=== PATIENT | female | born 1935 | race Caucasian/White ===

== ENCOUNTER 2017-05-17 08:55 | Day surgery (SDC) | payer OTHER ==
[~2017-05-17] VITALS: Ht 157.5 cm; Wt 61.7 kg
[~2017-05-17 08:55] MED LIST: ACET325 PO; AMLO10 PO; ASPI325; ASPI325EC PO; Antacid-Simeth360 ML PO; BISA10S PR; Bisac-Evac10 MG PR; CHOL10002; CLARITIN10 MG PO; CLOB.05TO TP; CLOP75; CLOP75 PO; CODACE30; DOCU100 PO; GABA100; GLUCHON PO; GLUCOSAMINE-CH1 EA22 PO; LAVAP17G; LOPE2C PO; LORA10 PO; METF500C PO; MIRALAX119 GM PO; Milk Of Ma400 MG/5 M PO; OXYB5ER PO; PANT40 PO; PRAV20; PRAV20 PO; PROP30DR BOTHEYES; Pravachol80 MG PO; RAMI2.5; RAMI5 PO; RANI150 PO; Ramipril10 MG PO; Secura Protecti50 GM; Systane 0.3-0.415 ML OP; TRIA80TC TOP; Toviaz4 MG PO; VITAMIN D33000 UNIT PO
== END 2017-05-17 11:30 | disposition home or self-care (01) ==
LOC: ORSCSDS 08:55
PROVIDERS: Internal Medicine Gastroenterology
PROC: 0DJ08ZZ Inspection of Upper Intestinal Tract, Via Natural or Artificial Opening Endoscopic (ICD-10-PCS; principal; 2017-05-17 10:30)
PROC: 0D758ZZ Dilation of Esophagus, Via Natural or Artificial Opening Endoscopic (ICD-10-PCS; principal; 2017-05-17 10:30)
DX: R13.14 Dysphagia, pharyngoesophageal phase (principal); K22.2 Esophageal obstruction; K44.9 Diaphragmatic hernia without obstruction or gangrene; Z87.891 Personal history of nicotine dependence; E78.2 Mixed hyperlipidemia; E11.9 Type 2 diabetes mellitus without complications; E78.5 Hyperlipidemia, unspecified; I10 Essential (primary) hypertension; Z79.01 Long term (current) use of anticoagulants; Z79.82 Long term (current) use of aspirin; Z79.84 Long term (current) use of oral hypoglycemic drugs; Z79.899 Other long term (current) drug therapy
CPT/HCPCS: 82947; J2250; J7120

== ENCOUNTER → 2018-03-15 | Outpatient (CLI) | payer OTHER ==
[~2018-03-15] MED LIST changes: +Acetaminophen-1 EAC1 PO; +NYSTRITC TOP; +Systane 0.3-0.415 ML BOTHEYES
[2018-03-15 17:13] LABS: Bilirubin, Urine Neg (Neg); Blood, Urine 2+ (Neg); Glucose Qualitative, Urine Neg (Neg); Ketones, Urine Neg (Neg); Leukocyte Esterase, Urine 2+ (Neg); Nitrite, Urine Neg (Neg); Protein, Urine Neg (Neg); Urobilinogen, Urine NORM (Normal); pH, Urine 6.5 (5.0-8.0)
[2018-03-15 17:33] LABS: Appearance, Urine Clear (Clear); Color, Urine Yellow (P-Yellow)
[2018-03-15 17:35] LABS: Bacteria Few /hpf; Red Blood Cells, Urine 0-2 /hpf (0-2); Squamous Epithelial Cells Few /hpf (Few); Transitional Epithelial Cells Few /hpf (0-Rare)
== END | disposition home or self-care (01) ==
LOC: LAB SHORT 15:45 → LAB 15:45
DX: N39.0 Urinary tract infection, site not specified (principal)
CPT/HCPCS: 81001; 87086

== ENCOUNTER 2018-06-29 09:53 | Day surgery (SDC) | payer OTHER ==
[~2018-06-29] VITALS: Ht 157.5 cm; Wt 140.0 kg
[~2018-06-29 09:53] MED LIST changes: +ALUM PO; +Biscolax10 MG; +Cosamin Ds Tab1 EACH PO; +MAG PO; +Milk Of Ma400 MG/5 M; +NYSTRIT TOP; +Polyethylene G500 G4; +SIMETH PO; +TYLECOD3 PO
== END 2018-06-29 13:03 | disposition home or self-care (01) ==
LOC: ORSCSDS 09:53
PROVIDERS: Surgery
PROC: 0JB60ZX Excision of Chest Subcutaneous Tissue and Fascia, Open Approach, Diagnostic (ICD-10-PCS; principal; 2018-06-29 11:15)
DX: L72.0 Epidermal cyst (principal); I10 Essential (primary) hypertension; I69.351 Hemiplegia and hemiparesis following cerebral infarction affecting right dominant side; Z79.899 Other long term (current) drug therapy; Z79.82 Long term (current) use of aspirin
CPT/HCPCS: 82947; 88304; J0690; J2001; J2704; J7120

== ENCOUNTER 2018-09-10 06:28 | Emergency (ER) | payer OTHER ==
[~2018-09-10] VITALS: Ht 157.5 cm; Wt 68.0 kg
[2018-09-10] MEDS ORDERED: Toviaz4 MG PO (06:43)
[2018-09-10] MEDS ORDERED: CHOL10002 PO (06:44)
[2018-09-10] MEDS ORDERED: LORA1SY PO (06:45)
[2018-09-10] MEDS ORDERED: Acetaminophen325 M1 PO (06:45)
[2018-09-10] MEDS ORDERED: Ducodyl5 MG PR (06:47)
[2018-09-10] MEDS ORDERED: MUCUS ER600 M1 PO (06:48)
[2018-09-10] MEDS ORDERED: ONDA4ODT MM (06:49)
== END 2018-09-10 08:31 | disposition home or self-care (01) ==
LOC: ER 06:28
DX: S92.511A Displaced fracture of proximal phalanx of right lesser toe(s), initial encounter for closed fracture (principal); W18.30XA Fall on same level, unspecified, initial encounter; Z79.899 Other long term (current) drug therapy; Z79.84 Long term (current) use of oral hypoglycemic drugs; Z79.82 Long term (current) use of aspirin; Z86.73 Personal history of transient ischemic attack (TIA), and cerebral infarction without residual deficits; E78.5 Hyperlipidemia, unspecified; E11.9 Type 2 diabetes mellitus without complications; I10 Essential (primary) hypertension; Z87.891 Personal history of nicotine dependence
CPT/HCPCS: 73630; 99283-25

== ENCOUNTER → 2018-10-10 | Outpatient (CLI) | payer OTHER ==
[~2018-10-10] MED LIST changes: +Acetaminophen325 M1 PO; +CHOL10002 PO; +Ducodyl5 MG PR; +LORA1SY PO; +MUCUS ER600 M1 PO; +ONDA4ODT MM
[2018-10-10 13:51] LABS: Bilirubin, Urine Neg (Neg); Blood, Urine 2+ (Neg); Glucose Qualitative, Urine 1+ (Neg); Ketones, Urine Neg (Neg); Leukocyte Esterase, Urine 3+ (Neg); Nitrite, Urine Neg (Neg); Protein, Urine 1+ (Neg); Specific Gravity, Urine 1.015 (1.003-1.022); Urobilinogen, Urine NORM (Normal)
[2018-10-10 14:24] LABS: Appearance, Urine Hazy (Clear); Color, Urine Yellow (P-Yellow)
[2018-10-10 14:26] LABS: White Blood Cells, Urine 50-100 /hpf (0-5)
[2018-10-10 14:27] LABS: Bacteria Many /hpf; Squamous Epithelial Cells Few /hpf (Few)
== END | disposition home or self-care (01) ==
LOC: LAB 13:34 → LAB SHORT 13:34
DX: N39.0 Urinary tract infection, site not specified (principal)
CPT/HCPCS: 81001; 87077; 87086; 87186

== ENCOUNTER → 2019-06-07 | Outpatient (CLI) | payer OTHER ==
[2019-06-07 18:47] LABS: Bilirubin, Urine Neg (Neg); Blood, Urine Neg (Neg); Glucose Qualitative, Urine Neg (Neg); Ketones, Urine Neg (Neg); Leukocyte Esterase, Urine 2+ (Neg); Nitrite, Urine Pos (Neg); Protein, Urine Neg (Neg); Urobilinogen, Urine NORM (Normal)
[2019-06-07 18:56] LABS: Appearance, Urine Clear (Clear); Color, Urine Yellow (P-Yellow)
[2019-06-07 18:58] LABS: Bacteria Many /hpf; Red Blood Cells, Urine 0-2 /hpf (0-2); Squamous Epithelial Cells Few /hpf (Few)
== END | disposition home or self-care (01) ==
LOC: LAB 18:41 → LAB SHORT 18:41
DX: N39.0 Urinary tract infection, site not specified (principal)
CPT/HCPCS: 81001; 87077; 87086; 87186

== ENCOUNTER → 2019-11-15 | Outpatient (CLI) | payer OTHER ==
[~2019-11-15] MED LIST changes: +ARTIFICIAL TEAR15 M2 BOTHEYES; +ASCO500 PO; -CHOL10002 PO; +CODACE30 PO; +FERSU300 PO; +GLUCOSAMINE CH PO; +MIRALAX17 GM PO; -Polyethylene G500 G4; +Pravastatin Sod80 MG PO; +VITAMIN D31000 UNI1 PO
[2019-11-15 19:49] LABS: Appearance, Urine Clear (Clear); Bilirubin, Urine Neg (Neg); Blood, Urine Neg (Neg); Color, Urine Yellow (P-Yellow); Glucose Qualitative, Urine Neg (Neg); Ketones, Urine Neg (Neg); Leukocyte Esterase, Urine 1+ (Neg); Nitrite, Urine Pos (Neg); Protein, Urine Neg (Neg); Urobilinogen, Urine NORM (Normal); pH, Urine 6.5 (5.0-8.0)
[2019-11-15 20:03] LABS: Red Blood Cells, Urine 0-2 /hpf (0-2); White Blood Cells, Urine 0-2 /hpf (0-5)
[2019-11-15 20:04] LABS: Bacteria Few /hpf; Squamous Epithelial Cells Rare /hpf (Few)
== END | disposition home or self-care (01) ==
LOC: LAB 18:03 → LAB SHORT 18:03
PROVIDERS: Internal Medicine Nephrology
DX: N39.0 Urinary tract infection, site not specified (principal)
CPT/HCPCS: 81001

== ENCOUNTER 2019-12-03 00:26 | Day surgery (SDC) | payer OTHER ==
[~2019-12-03 00:26] MED LIST changes: -ARTIFICIAL TEAR15 M2 BOTHEYES; -ASCO500 PO; -CODACE30 PO; -FERSU300 PO; -GLUCOSAMINE CH PO
--- NOTE | 2019-12-03 11:44 | NUR ---
LAB DRAW: ANGELINE RECIEVED ORDER FOR A 2 UNIT TRANSFUSION BUT PT WA NOT TYPED AND SCREENED. PT CAME INTO UNIT WITH DAUGHTER JIM VIA W/C. THIS RN STARTED IV, MIKE LABS AND PT TO COME BACK IN UNIT AT 13:30 FOR A 2 UNIT BLOOD TRANSFUSION. WHILE DOING IV, PT HAS STRONG ODOR OF URINE, SMELL IS SUSPICIOUS, POSSIBLE UTI, PTS DAUGHTER STATES THAT SHE LIVES AT [facility] BUT "JUST NOT HERSELF TODAY" PT SHAKES HEAD WHEN ASKED IF SHE KNOWS WHY SHE IS AT [facility]. A FULL ADMIT WILL BE DONE WHEN SHE RETURNS AT 13:30 FOR BLOOD. DAUGHTER GOING TO TAKE HER TO [place] [facility] WHILE THEY WAIT FOR BLOOD TO BE TYPED AND SCREENED.
[2019-12-03] MEDS ORDERED: FERSU300 PO (15:36)
[2019-12-03] MEDS ORDERED: ASCO500 PO (15:37)
[2019-12-03] MEDS ORDERED: ARTIFICIAL TEAR15 M2 BOTHEYES (15:38)
[2019-12-03] MEDS ORDERED: ACET325 PO (15:39)
[2019-12-03] MEDS ORDERED: CODACE30 PO (15:39)
[2019-12-03] MEDS ORDERED: GLUCOSAMINE CH PO (17:14)
[2019-12-03] MEDS ORDERED: Toviaz4 MG PO (17:15)
== END 2019-12-03 10:08 | disposition home or self-care (01) ==
LOC: ATC 00:26
PROC: 30233N1 Transfusion of Nonautologous Red Blood Cells into Peripheral Vein, Percutaneous Approach (ICD-10-PCS; principal; 2019-12-03)
DX: D64.9 Anemia, unspecified (principal); I10 Essential (primary) hypertension; E11.9 Type 2 diabetes mellitus without complications; I69.921 Dysphasia following unspecified cerebrovascular disease; G64 Other disorders of peripheral nervous system; M19.90 Unspecified osteoarthritis, unspecified site; E78.5 Hyperlipidemia, unspecified; G89.29 Other chronic pain; R51.9 Headache, unspecified; N39.3 Stress incontinence (female) (male); K57.90 Diverticulosis of intestine, part unspecified, without perforation or abscess without bleeding; E78.00 Pure hypercholesterolemia, unspecified; Z79.02 Long term (current) use of antithrombotics/antiplatelets; Z79.84 Long term (current) use of oral hypoglycemic drugs; Z79.82 Long term (current) use of aspirin; Z79.1 Long term (current) use of non-steroidal anti-inflammatories (NSAID); Z79.899 Other long term (current) drug therapy; Z87.891 Personal history of nicotine dependence; Z66 Do not resuscitate
CPT/HCPCS: 36415; 86850; 86900; 86901; 86923

== ENCOUNTER 2019-12-03 11:44 | Observation (INO) | payer OTHER ==
[~2019-12-03] VITALS: Ht 154.9 cm; Wt 57.3 kg
[2019-12-03 12:56] LABS: BASOPHILS PERCENT AUTO 1 % (0-2); EOSINOPHILS ABSOLUTE AUTO 0.08 K/mm3 (0.00-0.68); EOSINOPHILS PERCENT AUTO 1 % (0-6); Hematocrit 23.2 % (33.0-51.0); Hemoglobin 6.5 g/dL (11.5-16.0); IMMATURE GRAN ABSOLUTE AUTO 0.05 K/mm3 (0.00-0.10); IMMATURE GRAN PERCENT AUTO 1 % (0-1); LYMPHOCYTES ABSOLUTE AUTO 0.98 K/mm3 (0.84-5.20); LYMPHOCYTES PERCENT AUTO 9 % (21-46); MONOCYTES ABSOLUTE AUTO 0.58 K/mm3 (0.16-1.47); MONOCYTES PERCENT AUTO 5 % (4-13); Mean Corpuscular HGB 19.4 pg (26.0-34.0); Mean Corpuscular Volume 69 fL (80-100); Mean Platelet Volume 9.6 fL (9.1-12.4); NEUTROPHILS ABSOLUTE AUTO 8.99 K/mm3 (1.96-9.15); NEUTROPHILS PERCENT AUTO 83 % (41-73); Platelet Count 451 K/mm3 (150-400); RDW Coefficient Variation 18.3 % (11.7-14.2); RDW Standard Deviation 40.6 fL (35.1-46.3); Red Blood Cell Count 3.35 M/mm3 (3.80-5.20); White Blood Cell Count 10.78 K/mm3 (4.00-11.30)
[2019-12-03 13:15] LABS: Alanine Aminotransfer (ALT/SGP 13 U/L (12-78); Albumin, Blood 3.4 g/dL (3.4-5.0); Albumin/Globulin Ratio 0.9 (0.8-1.8); Alk Phos 56 U/L (50-136); Anion Gap 10 mmol/L (6-16); Aspartate Aminotrans (AST/SGOT 14 U/L (12-37); Bilirubin, Total 0.2 mg/dL (0.1-1.0); Blood Urea Nitrogen 11 mg/dL (8-24); Bun/Creatinine Ratio 13.1 (12.0-20.0); CO2, Blood 22 mmol/L (21-32); Calcium, Blood 8.7 mg/dL (8.5-10.1); Chloride, Blood 103 mmol/L (98-108); Creatinine, Blood 0.84 mg/dL (0.40-1.00); Globulin, Blood 3.8 g/dL (2.2-4.0); Glomerular Filtration Rate >60 (60-); Glucose, Blood 160 mg/dL (70-99); Potassium, Blood 3.8 mmol/L (3.5-5.5); Sodium, Blood 135 mmol/L (136-145); Total Protein, Blood 7.2 g/dL (6.4-8.2); Troponin I 0.025 ng/mL (0.000-0.040)
--- NOTE | 2019-12-03 13:26 | NUR ---
After responding to a rapid response, I connect with patient's daughter, Vidya. I escort Vidya to the ER and provide a distraction and emotional support to Vidya while ER staff provide medical assistance to patient. I conduct a life review of patient and Vidya as well as learn their congregation preference ([employer]). I reinforce helpful attitudes and practices and provide prayer. I will continue to remain available to patient and family.
[2019-12-03] MEDS ORDERED: FERSU300 PO (15:36)
[2019-12-03] MEDS ORDERED: ASCO500 PO (15:37)
[2019-12-03] MEDS ORDERED: ARTIFICIAL TEAR15 M2 BOTHEYES (15:38)
[2019-12-03] MEDS ORDERED: ACET325 PO (15:39)
[2019-12-03] MEDS ORDERED: CODACE30 PO (15:39)
[2019-12-03] MEDS ORDERED: GLUCOSAMINE CH PO (17:14)
[2019-12-03] MEDS ORDERED: Toviaz4 MG PO (17:15)
[2019-12-03 19:01] LABS: Source, Urine Catheter
--- NOTE | 2019-12-03 19:10 | NUR ---
SHIFT SUMMARY PT ADMITTED AFTER RTT WHEN WAITING TO RECIEVE BLOOD IN [place]. PT IS AO, BUT EXHIBITS CONFUSION. 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 PT'S DAUGHTER IN ROOM THROUGHOUT SHIFT SINCE ADMIT AT 1600. URINE SAMPLE COLLECTED BY STRAIGHT CATH AND SENT TO LAB. PT IS INCONTINENT OF URINE. PT DENIES PAIN, N/V, SOB. PT IS ON BEDREST WITH BATHROOM PRIVILEDGES. PLAN IS TO INFUSE LAST UNIT OF PRBC ON UNIT AND EVALUATE URINE CULTURE RESULTS. PT IS IN BED, LOW POSITION, ALARM ON, WITH CALL LIGHT IN REACH.
[2019-12-03 19:15] LABS: Bilirubin, Urine Neg (Neg); Blood, Urine 1+ (Neg); Glucose Qualitative, Urine Neg (Neg); Ketones, Urine Neg (Neg); Leukocyte Esterase, Urine 1+ (Neg); Nitrite, Urine Pos (Neg); Protein, Urine 1+ (Neg); Urobilinogen, Urine NORM (Normal)
[2019-12-03 19:29] LABS: Appearance, Urine Cloudy (Clear); Color, Urine Yellow (P-Yellow)
[2019-12-03 19:30] LABS: Bacteria Many /hpf; Red Blood Cells, Urine 0-2 /hpf (0-2); Squamous Epithelial Cells Few /hpf (Few)
--- NOTE | 2019-12-03 22:52 | NUR ---
infused one unit PRBS per MD orders. No noted adverse affects. Smiling. Daughter at bedside. call light in reach.
[2019-12-04 04:54] LABS: BASOPHILS ABSOLUTE AUTO 0.06 K/mm3 (0.00-0.23); BASOPHILS PERCENT AUTO 1 % (0-2); EOSINOPHILS ABSOLUTE AUTO 0.26 K/mm3 (0.00-0.68); EOSINOPHILS PERCENT AUTO 3 % (0-6); Hematocrit 29.9 % (33.0-51.0); Hemoglobin 9.1 g/dL (11.5-16.0); IMMATURE GRAN ABSOLUTE AUTO 0.03 K/mm3 (0.00-0.10); IMMATURE GRAN PERCENT AUTO 0 % (0-1); LYMPHOCYTES ABSOLUTE AUTO 1.73 K/mm3 (0.84-5.20); LYMPHOCYTES PERCENT AUTO 19 % (21-46); MONOCYTES ABSOLUTE AUTO 0.73 K/mm3 (0.16-1.47); MONOCYTES PERCENT AUTO 8 % (4-13); Mean Corpuscular HGB Conc 30.4 g/dL (31.5-36.5); Mean Platelet Volume 9.1 fL (9.1-12.4); NEUTROPHILS ABSOLUTE AUTO 6.21 K/mm3 (1.96-9.15); NEUTROPHILS PERCENT AUTO 69 % (41-73); Platelet Count 356 K/mm3 (150-400); RDW Coefficient Variation 23.4 % (11.7-14.2); RDW Standard Deviation 59.4 fL (35.1-46.3); Red Blood Cell Count 3.96 M/mm3 (3.80-5.20); White Blood Cell Count 9.02 K/mm3 (4.00-11.30)
[2019-12-04 04:55] LABS: Mean Corpuscular Volume 76 fL (80-100)
[2019-12-04 05:14] LABS: Alanine Aminotransfer (ALT/SGP 11 U/L (12-78); Albumin, Blood 2.9 g/dL (3.4-5.0); Albumin/Globulin Ratio 0.9 (0.8-1.8); Alk Phos 55 U/L (50-136); Anion Gap 7 mmol/L (6-16); Aspartate Aminotrans (AST/SGOT 10 U/L (12-37); Blood Urea Nitrogen 9 mg/dL (8-24); Bun/Creatinine Ratio 15.1 (12.0-20.0); CO2, Blood 24 mmol/L (21-32); Calcium, Blood 8.1 mg/dL (8.5-10.1); Chloride, Blood 107 mmol/L (98-108); Globulin, Blood 3.3 g/dL (2.2-4.0); Glomerular Filtration Rate >60 (60-); Glucose, Blood 100 mg/dL (70-99); Phosphorus, Blood 3.4 mg/dL (2.5-4.9); Potassium, Blood 3.5 mmol/L (3.5-5.5); Sodium, Blood 138 mmol/L (136-145); Total Protein, Blood 6.2 g/dL (6.4-8.2)
--- NOTE | 2019-12-04 10:56 | NUR ---
PHYSICIAN NOTIFIED/PT EVAL THIS RN SPOKE TO DR. WORKMAN AT 1054 ABOUT PT EVALUATION FOR PT TO BE DC'D TO SNF. THIS RN RECEIVED ORDERS TO DC PREVIOUS DC ORDERS GIVEN THIS AM.
--- NOTE | 2019-12-04 12:16 | NUR ---
I meet with patient's daughter, Vidya, outside the patient's rm. Vidya tells me about what is happening medically with patient and the plan moving forward. Although Viday understands the purpose of patient going to a rehab. facility she voices her concerns about patient declining from lack of consistancey and connection with her family. I provide therapeutic listening and normalize her concerns. Vidya states that the conversation is helpful. I will continue to remain available to patient and family.
--- NOTE | 2019-12-04 18:04 | NUR ---
SHIFT SUMMARY PT IS AO, BUT EXHIBITS CONFUSION. PT TRIED TO EXIT BED MULTIPLE TIMES THIS SHIFT AND BED ALARM IS IN PLACE. PT DENIES PAIN, N/V, SOB. PT'S DAUGHTER IN ROOM THROUGHOUT DAY. PT EVALUATED BY PT AND DETERMINED SNF MAY BE NEEDED UPON DC FOR STRENGTHENING. PT IS ON BEDREST AND UP TO COMMODE WITH LIFT FOR BM'S. PLAN IS TO POTENTIALLY DC TOMORROW. PT IS IN BED, CALL LIGHT IN REACH, ALARM IN PLACE. DAUGHTER IS CURRENTLY AT BEDSIDE.
--- NOTE | 2019-12-05 11:51 | NUR ---
Patient is sleeping and her daughter, Vidya is bedside. Vidya tells me about the goal she has to have patient stay one more night and instead of going to a rehab. facility go directly to [facility]. Vidya is concerned that the constant shifting of facilities and people would cause her mother undue confusion and fear. As patient awakens, she appears to be much more aware. Vidya tells me about the struggle many of the events in her life are. I provide therapeutic listening and prayer. Vidya responds well and shows signs of reduced stress. I will continue to remain available to patient and family.
--- NOTE | 2019-12-05 19:05 | NUR ---
ASSUMED CARE RECEIVED REPORT FROM ROSALINO HERNÁNDEZ. ASSUMED CARE OF PT. PT USING BSC AT THIS TIME, FOOD SERVICE STEWARD ASSISTING PT BACK TO BED. NO S/S ACUTE DISTRESS NOTED. DENIES NEEDS AT THIS TIME. CALL LIGHT AND POSSESSIONS IN REACH, BED IN LOW POSITION WITH ALARM ON. WILL CONTINUE TO MONITOR.
--- NOTE | 2019-12-05 19:14 | NUR ---
SHIFT SUMMARY PT IS AO AND MORE AWAKE THIS ABBE. PT SLEPT THROUGHOUT DAY. PT DENIES PAIN, N/V, SOB. PT TURNED Q2H. PT ABLE TO AMBULATE TO COMMODE WITH 2 PERSON ASSIST AND FWW THIS ABBE. NO ACUTE CHANGES THIS SHIFT. PT IN BED, CALL LIGHT IN REACH, ALARMS ON. DAUGHTER PRESENT IN THE ROOM.
--- NOTE | 2019-12-06 06:07 | NUR ---
SHIFT SUMMARY PT HAS HAD NO ACUTE CHANGES IN CONDITION T/O NIGHT, SLEPT T/O. WAS MONITORED EVERY 1-2 HOURS WITH NEEDS MET. REPOSITIONED TOLERATED. VS REVIEWED, STABLE. DAUGHTER HAS REMAINED AT BEDSIDE. HOPEFUL FOR PT TO D/C HOME TODAY. DENY NEEDS AT THIS TIME. CALL LIGHT, POSSESSIONS IN REACH, BED IN LOWEST POSITION WITH ALARMS ON. WILL CONTINUE TO MONITOR AND PROVIDE CARE NEEDED UNTIL DAY RN ASSUMES CARE.
--- NOTE | 2019-12-06 17:41 | NUR ---
SHIFT SUMMARY PATIENT ALERT AND ORIENTED TO SELF AND FAMILY THIS SHIFT. PATIENT MOSTLY NON-VERBAL FROM CVA 17 YEARS AGO. PATIENT 2 PERSON ASSIST TO THE BEDSIDE COMODE THIS SHIFT. PATIENT SITTING UP IN BED THIS SHIFT. PT STATES THAT PATIENT IS MUCH MORE ALERT THAN PREVIOUS ATTEMPTS OF WORKING WITH HER. PATIENT'S DAUGHTER IN THE ROOM FOR MOST OF THIS SHIFT. PATIENT CURRENTLY SITTING UP IN BED WATCHING TELEVISION.
--- NOTE | 2019-12-07 05:43 | NUR ---
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 DTR Vidya at bedside supportive involved in cares. Extensive assist with transfers toileting. Voids on BSC & incontinent of urine. Planning to dc back to [facility] today? UTI tx with IV antibiotics & PT recieved transfusion of 2 units of PRBC for anemia. Pain well controlled on current RX.
[2019-12-07] MEDS ORDERED: AMLO10 (10:10)
--- NOTE | 2019-12-07 11:02 | NUR ---
PATIENT D/C'D TO [facility] VIA [facility] [facility]SP[facility]. DC ISNTRUCTION AND MED LIST DISCUSSED WITH DAUGHTER AND COPY PROVIDED. FAXED DC INSTRUCTIONS TO [facility]. PATIENT AND DAUGHTER DENY ANY FURTHER QUESTIONS OR CONCERNS. BELONGING SENT HOME WITH DAUGHTER.
== END 2019-12-07 10:42 | disposition home or self-care (01) ==
LOC: ER 11:44 → MEDS 11:45 → ENPENDDIS 12-04 14:34 → MEDS 12-07 10:42
PROVIDERS: Emergency Medicine; ADMIT Hospitalist
PROC: 30233N1 Transfusion of Nonautologous Red Blood Cells into Peripheral Vein, Percutaneous Approach (ICD-10-PCS; principal; 2019-12-03)
DX: D64.9 Anemia, unspecified (principal); N39.0 Urinary tract infection, site not specified; B96.20 Unspecified Escherichia coli [E. coli] as the cause of diseases classified elsewhere; G92 Toxic encephalopathy; R44.1 Visual hallucinations; E78.5 Hyperlipidemia, unspecified; G89.29 Other chronic pain; R51.9 Headache, unspecified; E11.9 Type 2 diabetes mellitus without complications; I10 Essential (primary) hypertension; I69.951 Hemiplegia and hemiparesis following unspecified cerebrovascular disease affecting right dominant side; I69.920 Aphasia following unspecified cerebrovascular disease; R01.1 Cardiac murmur, unspecified; M19.90 Unspecified osteoarthritis, unspecified site; Z87.891 Personal history of nicotine dependence; Z90.710 Acquired absence of both cervix and uterus; Z90.722 Acquired absence of ovaries, bilateral; Z90.79 Acquired absence of other genital organ(s); Z99.3 Dependence on wheelchair; Z79.02 Long term (current) use of antithrombotics/antiplatelets; Z79.82 Long term (current) use of aspirin; Z79.84 Long term (current) use of oral hypoglycemic drugs; Z79.899 Other long term (current) drug therapy; Z23 Encounter for immunization
CPT/HCPCS: 36415; 36430; 71045; 80053; 81001; 82947; 83735; 84100; 84484; 85025; 86850; 86900; 86901; 86920; 86923; 87077; 87086; 87186; 93005; 93010; 97162; 97530; 99285-25; A9270-GY; J0696; J1650; J7030; P9016

== ENCOUNTER 2019-12-21 11:03 | Emergency (ER) | payer OTHER ==
[~2019-12-21] VITALS: Ht 172.7 cm; Wt 90.7 kg
[~2019-12-21 11:03] MED LIST changes: +AMLO10; +ARTIFICIAL TEAR15 M2 BOTHEYES; +ASCO500 PO; +CODACE30 PO; +FERSU300 PO; +GLUCOSAMINE CH PO
[2019-12-21] MEDS ORDERED: ACET325 PO (11:32)
[2019-12-21] MEDS ORDERED: AMLO10 PO (11:33)
[2019-12-21] MEDS ORDERED: FERSU300 PO (11:33)
[2019-12-21] MEDS ORDERED: CODACE30 PO (11:33)
[2019-12-21] MEDS ORDERED: GLUCOS PO (11:35)
[2019-12-21] MEDS ORDERED: CHON PO (11:35)
[2019-12-21] MEDS ORDERED: MSM PO (11:35)
[2019-12-21] MEDS ORDERED: PANT40 PO (11:36)
[2019-12-21] MEDS ORDERED: METF500C PO (11:36)
[2019-12-21] MEDS ORDERED: MIRALAX17 GM (11:36)
[2019-12-21] MEDS ORDERED: Pravachol40 MG PO (11:36)
[2019-12-21] MEDS ORDERED: Toviaz4 MG PO (11:37)
[2019-12-21] MEDS ORDERED: Vitamin D2000 UNIT PO (11:37)
[2019-12-21] MEDS ORDERED: ASCO500 PO (11:37)
[2019-12-21] MEDS ORDERED: RAMI5 PO (11:37)
[2019-12-21] MEDS ORDERED: EYE DROPS BOTHEYES (11:38)
[2019-12-21] MEDS ORDERED: NYSTOP15 GM TOP (11:38)
[2019-12-21 12:08] LABS: BASOPHILS ABSOLUTE AUTO 0.09 K/mm3 (0.00-0.23); BASOPHILS PERCENT AUTO 1 % (0-2); EOSINOPHILS ABSOLUTE AUTO 0.14 K/mm3 (0.00-0.68); EOSINOPHILS PERCENT AUTO 1 % (0-6); Hemoglobin 10.8 g/dL (11.5-16.0); IMMATURE GRAN ABSOLUTE AUTO 0.03 K/mm3 (0.00-0.10); IMMATURE GRAN PERCENT AUTO 0 % (0-1); LYMPHOCYTES ABSOLUTE AUTO 2.11 K/mm3 (0.84-5.20); LYMPHOCYTES PERCENT AUTO 19 % (21-46); MONOCYTES ABSOLUTE AUTO 0.84 K/mm3 (0.16-1.47); MONOCYTES PERCENT AUTO 8 % (4-13); Mean Platelet Volume 9.6 fL (9.1-12.4); NEUTROPHILS ABSOLUTE AUTO 7.65 K/mm3 (1.96-9.15); NEUTROPHILS PERCENT AUTO 71 % (41-73); Platelet Count 588 K/mm3 (150-400); White Blood Cell Count 10.86 K/mm3 (4.00-11.30)
[2019-12-21 12:12] LABS: Mean Corpuscular HGB 23.1 pg (26.0-34.0); Mean Corpuscular Volume 77 fL (80-100); Red Blood Cell Count 4.68 M/mm3 (3.80-5.20)
[2019-12-21 12:21] LABS: Alanine Aminotransfer (ALT/SGP 11 U/L (12-78); Albumin, Blood 3.3 g/dL (3.4-5.0); Albumin/Globulin Ratio 0.8 (0.8-1.8); Alk Phos 79 U/L (50-136); Anion Gap 9 mmol/L (6-16); Aspartate Aminotrans (AST/SGOT 17 U/L (12-37); Bilirubin, Total 0.2 mg/dL (0.1-1.0); Blood Urea Nitrogen 9 mg/dL (8-24); Bun/Creatinine Ratio 13.6 (12.0-20.0); CO2, Blood 25 mmol/L (21-32); Calcium, Blood 9.3 mg/dL (8.5-10.1); Chloride, Blood 95 mmol/L (98-108); Creatinine, Blood 0.66 mg/dL (0.40-1.00); Globulin, Blood 3.9 g/dL (2.2-4.0); Glomerular Filtration Rate >60 (60-); Glucose, Blood 140 mg/dL (70-99); Potassium, Blood 3.6 mmol/L (3.5-5.5); Sodium, Blood 129 mmol/L (136-145); Total Protein, Blood 7.2 g/dL (6.4-8.2)
== END 2019-12-21 14:56 | disposition home or self-care (01) ==
LOC: ER 11:03
PROVIDERS: Emergency Medicine
DX: R11.10 Vomiting, unspecified (principal); R19.5 Other fecal abnormalities; E78.5 Hyperlipidemia, unspecified; E11.9 Type 2 diabetes mellitus without complications; I10 Essential (primary) hypertension; Z79.899 Other long term (current) drug therapy; Z79.84 Long term (current) use of oral hypoglycemic drugs; Z86.73 Personal history of transient ischemic attack (TIA), and cerebral infarction without residual deficits; Z87.891 Personal history of nicotine dependence
CPT/HCPCS: 71045; 74176; 80053; 85025; 86850; 86900; 86901; 93005; 93010; 96374; 99285-25; C9113

== ENCOUNTER 2020-01-29 12:02 | Inpatient (IN) | payer OTHER ==
[~2020-01-29] VITALS: Ht 162.6 cm; Wt 54.0 kg
[~2020-01-29 12:02] MED LIST changes: +CHON PO; +EYE DROPS BOTHEYES; +GLUCOS PO; +MIRALAX17 GM; +MSM PO; +NYSTOP15 GM TOP; +Vitamin D2000 UNIT PO
[2020-01-29 13:23] LABS: BASOPHILS ABSOLUTE AUTO 0.04 K/mm3 (0.00-0.23); BASOPHILS PERCENT AUTO 0 % (0-2); EOSINOPHILS ABSOLUTE AUTO 0.02 K/mm3 (0.00-0.68); EOSINOPHILS PERCENT AUTO 0 % (0-6); Hematocrit 36.3 % (33.0-51.0); Hemoglobin 11.5 g/dL (11.5-16.0); IMMATURE GRAN ABSOLUTE AUTO 0.07 K/mm3 (0.00-0.10); IMMATURE GRAN PERCENT AUTO 1 % (0-1); LYMPHOCYTES ABSOLUTE AUTO 1.09 K/mm3 (0.84-5.20); LYMPHOCYTES PERCENT AUTO 8 % (21-46); MONOCYTES ABSOLUTE AUTO 0.77 K/mm3 (0.16-1.47); MONOCYTES PERCENT AUTO 6 % (4-13); Mean Corpuscular HGB 24.8 pg (26.0-34.0); Mean Corpuscular HGB Conc 31.7 g/dL (31.5-36.5); Mean Corpuscular Volume 78 fL (80-100); Mean Platelet Volume 10.1 fL (9.1-12.4); NEUTROPHILS ABSOLUTE AUTO 11.34 K/mm3 (1.96-9.15); NEUTROPHILS PERCENT AUTO 85 % (41-73); Platelet Count 438 K/mm3 (150-400); RDW Coefficient Variation 22.5 % (11.7-14.2); RDW Standard Deviation 63.5 fL (35.1-46.3); Red Blood Cell Count 4.64 M/mm3 (3.80-5.20); White Blood Cell Count 13.33 K/mm3 (4.00-11.30)
[2020-01-29] MEDS ORDERED: ROXICODONE5 MG PO (14:09)
[2020-01-29] MEDS ORDERED: PANT40 PO (14:09)
[2020-01-29] MEDS ORDERED: METF500C PO (14:09)
[2020-01-29 14:10] LABS: Calcium, Ionized (POC) 1.05 mmol/L (1.10-1.46); Chloride (POC) 94 mmol/L (98-108); Creatinine (POC) 0.4 mg/dL (0.6-1.0); Glucose (ISTAT POC) 139 mg/dL (70-99); Hemoglobin (POC) 12.2 g/dL (12.0-16.0); Potassium (POC) 3.3 mmol/L (3.5-5.5); Sodium (POC) 130 mmol/L (135-148); Total CO2 (POC) 26 mmol/L (21-32)
[2020-01-29] MEDS ORDERED: Pravastatin Sod80 MG PO (14:10)
[2020-01-29] MEDS ORDERED: Toviaz4 MG PO (14:11)
[2020-01-29] MEDS ORDERED: AMLO10 PO (14:11)
[2020-01-29] MEDS ORDERED: Ramipril10 MG PO (14:11)
[2020-01-29 16:43] LABS: Anion Gap 8 mmol/L (6-16); Blood Urea Nitrogen 8 mg/dL (8-24); Bun/Creatinine Ratio 16.3 (12.0-20.0); CO2, Blood 28 mmol/L (21-32); Calcium, Blood 8.6 mg/dL (8.5-10.1); Chloride, Blood 98 mmol/L (98-108); Creatinine, Blood 0.49 mg/dL (0.40-1.00); Glomerular Filtration Rate >60 (60-); Glucose, Blood 130 mg/dL (70-99); Potassium, Blood 3.2 mmol/L (3.5-5.5); Sodium, Blood 134 mmol/L (136-145)
[2020-01-29] MEDS ORDERED: FERSU300 PO (17:29)
[2020-01-29] MEDS ORDERED: GLUCOSAMINE-CH1 EAC7 PO (17:29)
[2020-01-29] MEDS ORDERED: MIRALAX17 GM PO (17:32)
[2020-01-29] MEDS ORDERED: ASCO500 PO (17:33)
[2020-01-29] MEDS ORDERED: BISA10S PR (17:33)
[2020-01-29] MEDS ORDERED: ACET325 PO (17:33)
[2020-01-29] MEDS ORDERED: Vitamin D2000 UNIT PO (17:33)
[2020-01-29] MEDS ORDERED: DULCOLAX400 MG/5 M PO (17:34)
[2020-01-29] MEDS ORDERED: LORA10ER PO (17:34)
[2020-01-29] MEDS ORDERED: VOLTAREN ARTHRI20 GM TOP (17:34)
[2020-01-29] MEDS ORDERED: ONDA4 PO (17:35)
[2020-01-29] MEDS ORDERED: NYAMYC15 G1 TOP (17:35)
[2020-01-29] MEDS ORDERED: OXAYDO5 M1 PO (17:36)
[2020-01-29] MEDS ORDERED: OXYC5 PO (17:37)
[2020-01-29 22:26] LABS: Anion Gap 8 mmol/L (6-16); Blood Urea Nitrogen 9 mg/dL (8-24); Bun/Creatinine Ratio 18.9 (12.0-20.0); CO2, Blood 27 mmol/L (21-32); Calcium, Blood 8.4 mg/dL (8.5-10.1); Chloride, Blood 101 mmol/L (98-108); Creatinine, Blood 0.48 mg/dL (0.40-1.00); Glomerular Filtration Rate >60 (60-); Glucose, Blood 133 mg/dL (70-99); Potassium, Blood 3.2 mmol/L (3.5-5.5); Sodium, Blood 136 mmol/L (136-145)
[2020-01-30 04:39] LABS: BASOPHILS ABSOLUTE AUTO 0.03 K/mm3 (0.00-0.23); BASOPHILS PERCENT AUTO 0 % (0-2); EOSINOPHILS ABSOLUTE AUTO 0.02 K/mm3 (0.00-0.68); EOSINOPHILS PERCENT AUTO 0 % (0-6); Hematocrit 31.3 % (33.0-51.0); IMMATURE GRAN ABSOLUTE AUTO 0.05 K/mm3 (0.00-0.10); IMMATURE GRAN PERCENT AUTO 1 % (0-1); LYMPHOCYTES ABSOLUTE AUTO 1.35 K/mm3 (0.84-5.20); LYMPHOCYTES PERCENT AUTO 14 % (21-46); MONOCYTES ABSOLUTE AUTO 0.62 K/mm3 (0.16-1.47); MONOCYTES PERCENT AUTO 6 % (4-13); Mean Corpuscular HGB 25.3 pg (26.0-34.0); Mean Corpuscular HGB Conc 31.9 g/dL (31.5-36.5); Mean Corpuscular Volume 79 fL (80-100); Mean Platelet Volume 9.4 fL (9.1-12.4); NEUTROPHILS ABSOLUTE AUTO 7.77 K/mm3 (1.96-9.15); NEUTROPHILS PERCENT AUTO 79 % (41-73); Platelet Count 378 K/mm3 (150-400); RDW Coefficient Variation 22.2 % (11.7-14.2); RDW Standard Deviation 62.9 fL (35.1-46.3); Red Blood Cell Count 3.95 M/mm3 (3.80-5.20); White Blood Cell Count 9.84 K/mm3 (4.00-11.30)
[2020-01-30 05:05] LABS: Alanine Aminotransfer (ALT/SGP 12 U/L (12-78); Albumin, Blood 2.4 g/dL (3.4-5.0); Albumin/Globulin Ratio 0.8 (0.8-1.8); Alk Phos 78 U/L (50-136); Anion Gap 7 mmol/L (6-16); Aspartate Aminotrans (AST/SGOT 18 U/L (12-37); Bilirubin, Total 0.4 mg/dL (0.1-1.0); Blood Urea Nitrogen 8 mg/dL (8-24); Bun/Creatinine Ratio 17.8 (12.0-20.0); CO2, Blood 26 mmol/L (21-32); Calcium, Blood 8.2 mg/dL (8.5-10.1); Chloride, Blood 104 mmol/L (98-108); Creatinine, Blood 0.45 mg/dL (0.40-1.00); Globulin, Blood 3.2 g/dL (2.2-4.0); Glomerular Filtration Rate >60 (60-); Glucose, Blood 124 mg/dL (70-99); Potassium, Blood 3.5 mmol/L (3.5-5.5); Sodium, Blood 137 mmol/L (136-145); Total Protein, Blood 5.6 g/dL (6.4-8.2)
[2020-01-31 05:21] LABS: BASOPHILS ABSOLUTE AUTO 0.03 K/mm3 (0.00-0.23); BASOPHILS PERCENT AUTO 0 % (0-2); EOSINOPHILS ABSOLUTE AUTO 0.04 K/mm3 (0.00-0.68); EOSINOPHILS PERCENT AUTO 0 % (0-6); Hematocrit 36.8 % (33.0-51.0); Hemoglobin 11.1 g/dL (11.5-16.0); IMMATURE GRAN ABSOLUTE AUTO 0.04 K/mm3 (0.00-0.10); IMMATURE GRAN PERCENT AUTO 0 % (0-1); LYMPHOCYTES ABSOLUTE AUTO 1.31 K/mm3 (0.84-5.20); LYMPHOCYTES PERCENT AUTO 14 % (21-46); MONOCYTES ABSOLUTE AUTO 0.59 K/mm3 (0.16-1.47); MONOCYTES PERCENT AUTO 6 % (4-13); Mean Corpuscular HGB 24.3 pg (26.0-34.0); Mean Corpuscular HGB Conc 30.2 g/dL (31.5-36.5); Mean Corpuscular Volume 81 fL (80-100); Mean Platelet Volume 10.3 fL (9.1-12.4); NEUTROPHILS PERCENT AUTO 79 % (41-73); Platelet Count 438 K/mm3 (150-400); RDW Coefficient Variation 22.5 % (11.7-14.2); RDW Standard Deviation 66.2 fL (35.1-46.3); Red Blood Cell Count 4.56 M/mm3 (3.80-5.20); White Blood Cell Count 9.51 K/mm3 (4.00-11.30)
[2020-01-31 05:43] LABS: Anion Gap 10 mmol/L (6-16); Blood Urea Nitrogen 4 mg/dL (8-24); Bun/Creatinine Ratio 8.7 (12.0-20.0); CO2, Blood 23 mmol/L (21-32); Calcium, Blood 8.2 mg/dL (8.5-10.1); Chloride, Blood 106 mmol/L (98-108); Creatinine, Blood 0.46 mg/dL (0.40-1.00); Glomerular Filtration Rate >60 (60-); Glucose, Blood 109 mg/dL (70-99); Potassium, Blood 3.4 mmol/L (3.5-5.5); Sodium, Blood 139 mmol/L (136-145)
[2020-02-03] MEDS ORDERED: MORP20L SL (10:00)
[2020-02-03] MEDS ORDERED: Haldol5 MG/1 ML PO (10:01)
[2020-02-03] MEDS ORDERED: Ativan1 MG PO (10:03)
[2020-02-03] MEDS ORDERED: [UNRECOGNIZED DRUG - OTHER] SL (10:03)
[2020-02-03] MEDS ORDERED: TRANSDERM-SCOP1 EAC3 TD (10:04)
== END 2020-02-03 12:11 | DRG 689 ==
LOC: ER 12:02 → MEDS 14:37 → ENPENDDIS 02-03 09:35 → MEDS 02-03 12:11
PROVIDERS: Emergency Medicine; ADMIT Family Medicine
DX: N39.0 Urinary tract infection, site not specified (principal); G93.41 Metabolic encephalopathy; I69.351 Hemiplegia and hemiparesis following cerebral infarction affecting right dominant side; E87.1 Hypo-osmolality and hyponatremia; Z20.828 Contact with and (suspected) exposure to other viral communicable diseases; Z66 Do not resuscitate; B96.20 Unspecified Escherichia coli [E. coli] as the cause of diseases classified elsewhere; I69.320 Aphasia following cerebral infarction; Z51.5 Encounter for palliative care; F41.9 Anxiety disorder, unspecified; F03.90 Unspecified dementia, unspecified severity, without behavioral disturbance, psychotic disturbance, mood disturbance, and anxiety; E78.5 Hyperlipidemia, unspecified; I10 Essential (primary) hypertension; Z87.891 Personal history of nicotine dependence; S42.301D Unspecified fracture of shaft of humerus, right arm, subsequent encounter for fracture with routine healing; W19.XXXD Unspecified fall, subsequent encounter; E87.6 Hypokalemia; L89.159 Pressure ulcer of sacral region, unspecified stage; E11.9 Type 2 diabetes mellitus without complications
CPT/HCPCS: 36415; 70450; 71045; 80047; 80048; 80053; 83605; 85014; 85025; 87040; 92610; 93005; 93010; 96365; 99285-25; J0360; J0696; J2270; J3480; J7030; J7042